=== PATIENT | male | born 1960 | race American Indian/Alaskan Native ===

== ENCOUNTER 2018-03-01 09:29 | Day surgery (SDC) | payer MEDICAID ==
[2018-02-25 16:36] VITALS: BMI 31.4
[2018-03-01] MEDS ORDERED: Propofol 10 mg/ml Inj (20 ML) ONE ×3 (11:15→11:46)
[2018-03-01] MEDS ORDERED: Sodium Chloride 0.9% 1,000 ML IV SCH (12:15)
[2018-03-01] MEDS ORDERED: Lidocaine 2% Jelly (30 ml) ONE (13:12)
[2018-03-01 14:09] VITALS: BP 130/86; PULSE 59; RESP 16; TEMP 98; O2SAT 98
== END 2018-03-01 14:08 | disposition home or self-care (01) ==
LOC: ENDO 09:29
PROVIDERS: ATTEND Internal Medicine
DX: Z12.11 Encounter for screening for malignant neoplasm of colon (principal); D12.2 Benign neoplasm of ascending colon; D12.8 Benign neoplasm of rectum; K63.5 Polyp of colon; K64.8 Other hemorrhoids; I10 Essential (primary) hypertension; N40.0 Benign prostatic hyperplasia without lower urinary tract symptoms; E78.5 Hyperlipidemia, unspecified